=== PATIENT | male | born 1975 | race Caucasian/White ===

== ENCOUNTER 2021-01-02 17:43 | Emergency (ER) | payer SELFPAY ==
[~2021-01-02] VITALS: Ht 175.3 cm; Wt 63.5 kg
--- NOTE | 2021-01-02 17:55 | NUR ---
WORSENING SOB X3 DAYS, SPEAKING FULL SENTENCES. PATIENT A/OX4, BREATHING EVEN AND UNLABORED, PT C/O MID-EPIGASTRIC DISCOMFORT, PT STS "I THINK I HAVE A HERNIA, THATS WHY IM HAVING A HARD TIME BREATHING" SPO2 97% ON ROOM AIR, NO SOB NOTED. PATIENT PLACED ON THE MECHANICAL LEAD.
[2021-01-02] MEDS ORDERED: ASPIRIN 325 MG TABLET ONE (18:07)
--- NOTE | 2021-01-02 18:17 | NUR ---
PATIENT REFUSED ASA, PER PATIENT "WHEN I SWALLOW IT GETS STUCK (POINTING IN HIS ESOPHAGUS). COVID SWAB SENT.
[2021-01-02 18:20] LABS: BASOPHILS % (AUTO) 0.6 % (0.0-2.0); EOSINOPHILS % (AUTO) 0.3 % (0.0-6.0); HEMATOCRIT 52 % (39-51); HEMOGLOBIN 18.4 g/dL (13.5-17.5); LYMPHOCYTES # (AUTO) 1.6 K/uL (0.8-4.8); LYMPHOCYTES % (AUTO) 19.5 % (20.0-44.0); MEAN CORPUSCULAR HGB CONC 35 g/dl (31.0-36.0); MEAN CORPUSCULAR VOLUME 94 fL (80-96); MONOCYTES # (AUTO) 0.4 K/uL (0.1-1.30); NEUTROPHILS # (AUTO) 6.1 K/uL (1.8-8.9); NEUTROPHILS % (AUTO) 74.6 % (43.0-81.0); PLATELET COUNT (AUTO) 301 K/uL (150-450); RED BLOOD CELL COUNT(AUTO) 5.56 MIL/uL (4.5-6.0); WHITE BLOOD COUNT (AUTO) 8.2 K/uL (4.3-11.0)
[2021-01-02] MEDS ORDERED: ASPIRIN 325 MG TABLET PO ONE (18:30)
[2021-01-02 19:11] LABS: ALANINE AMINOTRANSFERASE 46 U/L (12-78); ALBUMIN 4.8 g/dL (3.4-5.0); ALKALINE PHOSPHATASE 56 U/L (46-116); ASPARTATE AMINOTRANSFERASE 50 U/L (15-37); BILIRUBIN,DIRECT 0.2 mg/dL (0.0-0.2); BILIRUBIN,TOTAL 1.7 mg/dL (0.2-1.0); CALCIUM, SERUM 9.7 mg/dL (8.5-10.1); CARBON DIOXIDE 18 mmol/L (21-32); CHLORIDE 98 mmol/L (98-107); CREATININE 0.8 mg/dL (0.6-1.3); GLUCOSE 143 mg/dL (74-106); POTASSIUM 5.1 mmol/L (3.5-5.1); SODIUM SERUM 136 mmol/L (136-145); TOTAL PROTEIN, SERUM 8.4 g/dL (6.4-8.2); UREA NITROGEN, BLOOD 17 mg/dL (7-18)
--- NOTE | 2021-01-02 20:35 | NUR ---
PT IS MEDICALLY STABL FOR D/C IV removed. Catheter intact and site benign. Pressure and 4x4 applied to site. No bleeding noted.Patient discharged to home in stable condition. Written and verbal after care instructions given. Patient verbalizes understanding of instruction.
[2021-01-02 20:58] VITALS: BP 114/87
== END 2021-01-02 20:35 | disposition home or self-care (01) ==
LOC: ER 17:43
DX: R07.89 Other chest pain (principal); Z20.822 Contact with and (suspected) exposure to COVID-19
CPT/HCPCS: 36415; 71045; 80048; 80076; 83880; 84484; 85025; 85730; 87426; 93005; 99285; C9803